=== PATIENT | female | born 1980 | race Caucasian/White ===

== ENCOUNTER 2022-08-12 08:43 | Emergency (ER) | payer BC, SELFPAY ==
[2022-08-12 08:51] VITALS: BP 155/93; PULSE 78; RESP 18; TEMP 37.1; O2SAT 96; BMI 40.8
--- NOTE | 2022-08-12 09:41 | ED_ITS ---
HPI - General Adult General Time Seen by Provider: 09:42 Date Seen: 08/12/22 Chief complaint: Abdominal Pain Stated complaint: Back pain/pelvic pain Time Seen by Provider: 08/12/22 09:42 Source: patient and RN notes reviewed Mode of arrival: ambulatory Limitations: no limitations History of Present Illness HPI narrative: Patient is a 41-year-old female coming in with lower pelvic pain and low back pain today. On Friday, 2 days ago, she noted poking type pains in both of the outer hip areas, pointing to the superior iliac crest areas bilaterally. It went into the back and abdomen area. It has morphed into some low back pain with lower pelvic pain and pressure. Seems to radiate into both sides of the low abdomen/pelvic area. No fevers or chills, no urinary symptoms, no vaginal symptoms. She is about 14 days into her cycle, states she is not having much intercourse, nothing frequent. States there is no chance for . No change in bowel habits, no nausea or vomiting. Has had an episode similar to this where she was diagnosed with a ruptured ovarian cyst. She has also had a history of kidney stones that took 7 months to diagnosed per report. Her urinalysis kept coming back normal without any red cells. There is no pain into her lower extremities, this does not seem to be a radiculopathic type back pain per her report. She has tried Tylenol. She took 1 of her 's muscle relaxants which it sounds like may have been Flexeril last night. It did not help. She had a tough time getting comfortable and sleeping due to this pain last night. Related Data Previous Rx's Medication Instructions Recorded prednisone 20 mg tablet 20 mg PO BID #10 tabs 08/12/22 tizanidine 4 mg capsule 4 mg PO TID PRN muscle spasticity 08/12/22 #20 caps Allergies Allergy/AdvReac Type Severity Reaction Status Date / Time No Known Drug Allergies Allergy Verified 08/12/22 08:54 Review of Systems Status of ROS: Reports: 10 or more systems reviewed and unremarkable except as noted in History and below PFSH PFS Social History Smoking Status: Never smoker Do you use any of these nicotine containing products: None Second hand tobacco smoke exposure: No How often do you have a drink containing alcohol: never AUDIT-C Alcohol total score: 0 Non-prescribed substance use: denies use Exam Const: Vital Signs, click to edit/add: Vital Signs - 24 hr 08/12/22 08:51 08/12/22 10:45 Temperature 98.8 F Pulse Rate [Right Pulse Oximeter] 78 67 Respiratory Rate 18 16 Blood Pressure [Ri ght Upper Arm] 155/93 H 137/89 Pulse Oximetry 96 99 Oxygen Delivery Me thod Room Air Room Air Documenting provider has reviewed patient's vital signs: yes Common normals: no apparent distress, oriented x3, no limitations, healthy appearing and alert General appearance: cooperative, comfortable and well kempt Nutritional appearance: overweight HENMT: Common normals: normocephalic, head/scalp atraumatic, hearing grossly normal bilaterally, external ears normal, external nose normal, nasal mucous membranes and turbinates normal, moist oral mucous membranes, oropharynx normal, dentition normal and gingiva normal Head and scalp: normocephalic and atraumatic Nose: external nose normal and nasal mucous membranes and turbinates normal External ear: external ears normal Eye: Common normals: PERRL, EOMs intact bilaterally, conjunctivae normal and no scleral icterus Conjunctiva: conjunctiva(e) normal Pupil: PERRL Neck & C-Spine: Common normals: full ROM, no lymphadenopathy, supple, no meningeal signs, no JVD and thyroid normal Thyroid: thyroid normal Resp: Common normals: normal respiratory effort, no retractions, no use of accessory muscles and clear to auscultation bilaterally Auscultation: clear to auscultation bilaterally Cardio: Common normals: no JVD, regular rate, regular rhythm, S1 normal heart sound, S2 normal heart sound, no gallops, no clicks, no murmurs and no rub Rate: regular rate Rhythm: regular rhythm Heart sounds: S1 normal and S2 normal GI: Common normals: Normal to inspection, nondistended, normoactive bowel sounds present, soft to palpation, non-tender, no hepatosplenomegaly, no masses and no bruits Palpation: soft and no hepatosplenomegaly Other: Is nontender to palpation but states she is feeling the pain more suprapubic, certainly no rebound or guarding, no masses palpated. : Common normals: no CVA tenderness Bladder/kidney exam: no CVA tenderness Back & Pelvis: Common normals: no CVA tenderness, thoracic and lumbar spine normal to inspection and no thoracic nor lumbar tenderness Extremity: Common normals: normal to inspection, full ROM, normal capillary refill, no joint enlargement, no clubbing, cyanosis or edema, no calf tenderness and no pedal edema Neuro: Common normals: oriented x3 Sensorium/orientation: alert Meningeal signs: no meningeal signs Psych: Appearance: well kempt Course Course Hospital Course: We will establish an IV, get appropriate blood work and attempt to get a urinalysis as well. We will start with a pelvic ultrasound. She understands that we may need to obtain CT depending on what our labs and ultrasound show. We will give her 15 mg IV Toradol to see if this helps with pain. She is in agreement to the plan. It certainly sounds like there could be possibility of ovarian pathology including ovarian cysts. It is also possible that there might be consideration for kidney stones. Reevaluation(s) Reevaluation #1: Reviewed with patient that her ultrasound of her pelvis is not showing any acute pathology. Did review the calcifications in the ovaries which was requested for a follow-up ultrasound, will provide her with a copy on discharge to give her primary care provider. Reviewed her labs are looking good. She is still feeling a little low back pain and some pain in the right lower quadrant. We will be obtaining CT abdomen pelvis noncontrast. If this is normal, then this certainly could be coming from back pain. She states that she does not need anything further for pain control at this time. Time: 11:44 Reevaluation #2: Have reviewed with patient that there is nothing on her CT to suggest intra- abdominal pathology. Her labs are without any concerning abnormality. I do wonder if this is actually probably musculoskeletal in coming from her back. 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 I am actually going to give her her today and tomorrow off to rest. We discussed management in will proceed with prednisone [id number] Tylenol and ibuprofen. I will write for tizanidine different muscle relaxant and give her a few pain pills of tramadol. A prescription for 10 tramadol tablets will be provided. Time: 13:04 Vital Signs Vital signs: Initial Vital Signs Temperature 98.8 F 08/12/22 08:51 Temperature Source Temporal Artery Scan 08/12/22 08:51 Pulse Rate 78 08/12/22 08:51 Respiratory Rate 18 08/12/22 08:51 Blood Pressure 155/93 H 08/12/22 08:51 Blood Pressure Mean 113 08/12/22 08:51 Blood Pressure Position Sitting 08/12/22 08:51 Pulse Oximetry 96 08/12/22 08:51 Oxygen Delivery Method 08/12/22 08:51 Vital Signs Temperature 98.8 F 08/12/22 08:51 Pulse Rate 78 08/12/22 08:51 Respiratory Rate 18 08/12/22 08:51 Blood Pressure 155/93 H 08/12/22 08:51 Pulse Oximetry 96 08/12/22 08:51 Oxygen Delivery Method 08/12/22 08:51 Temperature 98.8 F 08/12/22 08:51 Pulse Rate 67 08/12/22 10:45 Respiratory Rate 16 08/12/22 10:45 Blood Pressure 137/89 08/12/22 10:45 Pulse Oximetry 99 08/12/22 10:45 Oxygen Delivery Method 08/12/22 10:45 Medical Decision Making Lab Data Lab results reviewed: Yes I reviewed the patient's lab results Labs: Lab Results 08/12/22 08/12/22 08/12/22 Range/Units 10:00 10:10 10:10 WBC 7.76 (4.50-11.00) K/uL RBC 5.05 (4.00-5.20) m/uL Hgb 14.2 (12.0-16.0) gm/dL Hct 43.0 (33.0-51.0) % MCV 85 (80-100) fL MCH 28 (26-34) pg MCHC 33 (32-36) gm/dL RDW Coeff of Zak 12.2 (11.5-15.5) % Plt Count 288 (140-440) K/uL Neut % (Auto) 45.0 (42.0-72.0) % Lymph % (Auto) 46.9 H (20-44) % [place] % (Auto) 5.7 (0.0-11.0) % Eos % (Auto) 1.4 (0.0-7.0) % Baso % (Auto) 0.6 (0.0-3.0) % Neut # (Auto) 3.49 (1.7-7.0) K/uL Lymph # (Auto) 3.60 H (0.90-2.90) K/uL Gentry # (Auto) 0.40 (0.00-0.90) K/UL Eos # (Auto) 0.11 (0.00-0.50) K/uL Baso # (Auto) 0.05 (0.00-0.30) K/uL Abs Immat Gran (auto) 0.03 (0.00-0.30) K/uL Sodium 135 (135-149) mmol/L Potassium 3.8 (3.6-5.1) mmol/L Chloride 103 (96-114) mmol/L Carbon Dioxide 25 (20-32) mmol/L BUN 10 (5-24) mg/dL Creatinine 0.7 (0.5-1.5) mg/dL Estimated Creat Clear 98.01 Estimated GFR 111 ml/min Glucose 88 (60-115) mg/dL Lactate (0.5-1.9) mmol/L Calcium 8.9 (8.4-10.6) mg/dL Total Bilirubin 0.4 (0.1-1.5) mg/dL AST 26 (12-35) U/L ALT 27 (4-35) U/L Alkaline Phosphatase 91 (40-150) U/L C-Reactive Protein < 0.5 L (0.5-1.0) mg/dL Total Protein 7.5 (6.0-8.3) g/dL Albumin 4.3 (3.3-5.0) g/dL Urine Color Yellow (Yellow) Urine Appearance Slightly Cloudy A (Clear) Urine pH 6.0 (5.0-8.5) Ur Specific [place] 1.020 (1.000-1.030) Urine Protein Negative (Negative) Urine Glucose (UA) Negative (Negative) Urine Ketones Negative (Negative) Urine Blood Trace-intact A (Negative) Urine Nitrite Negative (Negative) Urine Bilirubin Negative (Negative) Urine Urobilinogen 0.2 (0.2-1.0) Ur Leukocyte Esterase 1+ A (Negative) Urine RBC 2-5 A (0-2) Urine WBC 5-10 A (0-5) Ur Squamous Epith Cells Many A (None-Few) Urine Bacteria Many A (None) Urine HCG, Qual Negative (Negative) 08/12/22 Range/Units 10:10 WBC (4.50-11.00) K/uL RBC (4.00-5.20) m/uL Hgb (12.0-16.0) gm/dL Hct (33.0-51.0) % MCV (80-100) fL MCH (26-34) pg MCHC (32-36) gm/dL RDW Coeff of Zak (11.5-15.5) % Plt Count (140-440) K/uL Neut % (Auto) (42.0-72.0) % Lymph % (Auto) (20-44) % [place] % (Auto) (0.0-11.0) % Eos % (Auto) (0.0-7.0) % Baso % (Auto) (0.0-3.0) % Neut # (Auto) (1.7-7.0) K/uL Lymph # (Auto) (0.90-2.90) K/uL [place] # (Auto) (0.00-0.90) K/UL Eos # (Auto) (0.00-0.50) K/uL Baso # (Auto) (0.00-0.30) K/uL Abs Immat Gran (auto) (0.00-0.30) K/uL Sodium (135-149) mmol/L Potassium (3.6-5.1) mmol/L Chloride (96-114) mmol/L Carbon Dioxide (20-32) mmol/L BUN (5-24) mg/dL Creatinine (0.5-1.5) mg/dL Estimated Creat Clear Estimated GFR ml/min Glucose (60-115) mg/dL Lactate 0.9 (0.5-1.9) mmol/L Calcium (8.4-10.6) mg/dL Total Bilirubin (0.1-1.5) mg/dL AST (12-35) U/L ALT (4-35) U/L Alkaline Phosphatase (40-150) U/L C-Reactive Protein (0.5-1.0) mg/dL Total Protein (6.0-8.3) g/dL Albumin (3.3-5.0) g/dL Urine Color (Yellow) Urine Appearance (Clear) Urine pH (5.0-8.5) Ur Specific [place] (1.000-1.030) Urine Protein (Negative) Urine Glucose (UA) (Negative) Urine Ketones (Negative) Urine Blood (Negative) Urine Nitrite (Negative) Urine Bilirubin (Negative) Urine Urobilinogen (0.2-1.0) Ur Leukocyte Esterase (Negative) Urine RBC (0-2) Urine WBC (0-5) Ur Squamous Epith Cells (None-Few) Urine Bacteria (None) Urine HCG, Qual (Negative) Imaging Data CT scan - abdomen: Attestation: I have reviewed the pertinent imaging results. Radiologist's impression: Patient: [facility] Facility:?[facility] Patient ID:?[id number] Site Patient ID:?[id number]. Site :?[id number] Study:?CT Abdomen/Pelvis W/O-08/12/2022 12:07:36 PM Ordering Physician:Alona Cruz Final Report: INDICATION: Abdominal pain, normal ultrasound. TECHNIQUE: CT abdomen and pelvis without contrast. Coronal and sagittal reformats were generated. COMPARISON: CT of the abdomen and pelvis from 08/17/2013. FINDINGS: Lower chest: Unremarkable. Liver: Decreased attenuation is suggestive of steatosis. Otherwise unremarkable within limitations of lack of contrast. Gallbladder and bile ducts: Unremarkable. No stones or inflammation. No biliary dilation. Spleen: Unremarkable. Pancreas: Unremarkable. Adrenal glands: Unremarkable. No nodules. Kidneys and Ureters: No stones or hydronephrosis. Lymph Nodes and Retroperitoneum: Unremarkable. Vasculature: Unremarkable. GI tract: Unremarkable. Normal in caliber. Normal appendix. Peritoneum/Abdominal Wall: Unremarkable. No mass or infiltration. No free air or free fluid. Pelvic Viscera: Unremarkable. Bladder: Unremarkable. Bones: Unremarkable for age. IMPRESSION: No CT findings to explain the cause of the patient`s symptoms, within limitations of lack of contrast. Please note that all CT scans at this facility use dose modulation, iterative reconstruction, and/or weight-based dosing when appropriate to reduce radiation dose to as low as reasonably achievable. Dictated by Amado Arizmendi MD @ 08/12/2022 12:20:18 PM (Electronic Signature) US - abdomen: Attestation: I have reviewed the pertinent imaging results. Radiologist's impression: Patient: [facility] Facility:?[facility] Patient ID:?[id number] Site Patient ID:?[id number] Site :?[id number] Study:?US Pelvis -08/12/2022 11:01:54 AM Ordering Physician:Alona Cruz Final Report: INDICATION: Pelvic pain TECHNIQUE: Ultrasound pelvis transabdominal and transvaginal for better assessment or to better visualize the endometrium. Real-time sonographic images with spectral and color Doppler imaging of the ovaries were obtained. COMPARISON: None FINDINGS: Uterus: 7.6 x 4.1 x 5.6 cm. Normal echotexture of the myometrium. No masses. Endometrium: Endometrial thickness measures 10 mm. No sign of endometrial mass or fluid. Right ovary: 2.7 x 3.7 x 2.2 centimeters. Normal blood flow with inhomogeneous echotexture and small echogenic areas, likely punctate calcification. Left ovary: 3.7 x 2.0 x 2.2 centimeters. Normal blood flow with inhomogeneous echotexture and small echogenic areas, likely calcification. Cul-de-sac: Trace free fluid. IMPRESSION: 1. Normal bilateral ovarian blood flow. Some punctate calcifications within the ovaries which are nonspecific. Considering their bilateral distribution these are more likely dystrophic although follow-up pelvic ultrasound in 6 months to assess stability is suggested. 2. Unremarkable sonographic appearance of the uterus. Dictated by Colin Gaviria MD @ 08/12/2022 11:17:05 AM (Electronic Signature) Critical Care Time Critical Care Time Critical Care Time: No Discharge Plan Discharge Clinical Impression: Pelvic pain, Acute lumbar back pain Condition: Stable Instructions: Acute Low Back Pain (ED) Additional Instructions: Given the normal ultrasound and CT findings, the normal laboratory evaluation, it is my a opinion that your pelvic pain is likely referred pain from your back. Try prednisone, Tylenol/ibuprofen per bottle directions. Can use the tramadol if needed for severe pain, no driving or operating machinery. Need to follow up in clinic with primary provider within the next week. Consider physical therapy, get referral from primary provider. Activity Level: Activity as Tolerated Prescriptions: New prednisone 20 mg tablet 20 mg PO BID Qty: 10 0RF tizanidine 4 mg capsule 4 mg PO TID PRN (Reason: muscle spasticity) Qty: 20 0RF Stand Alone Forms: MyHealth Info Instructions
--- NOTE | 2022-08-12 09:48 | CRLHL7_ITS ---
For Patients: As a result of the Century Cures Act, medical imaging exams and procedure reports are released immediately into your electronic medical record. You may view this report before your referring provider. If you have questions, please contact your health care provider. INDICATION: Pelvic pain TECHNIQUE: Ultrasound pelvis transabdominal and transvaginal for better assessment or to better visualize the endometrium. Real-time sonographic images with spectral and color Doppler imaging of the ovaries were obtained. COMPARISON: None FINDINGS: Uterus: 7.6 x 4.1 x 5.6 cm. Normal echotexture of the myometrium. No masses. Endometrium: Endometrial thickness measures 10 mm. No sign of endometrial mass or fluid. Right ovary: 2.7 x 3.7 x 2.2 centimeters. Normal blood flow with inhomogeneous echotexture and small echogenic areas, likely punctate calcification. Left ovary: 3.7 x 2.0 x 2.2 centimeters. Normal blood flow with inhomogeneous echotexture and small echogenic areas, likely calcification. Cul-de-sac: Trace free fluid. IMPRESSION: 1. Normal bilateral ovarian blood flow. Some punctate calcifications within the ovaries which are nonspecific. Considering their bilateral distribution these are more likely dystrophic although follow-up pelvic ultrasound in 6 months to assess stability is suggested. 2. Unremarkable sonographic appearance of the uterus. Dictated by Colin Gaviria MD @ 08/12/2022 11:17:05 AM (Electronically Signed)
[2022-08-12] MEDS: KETOROLAC 15 MG/ML inj IVP (10:11)
[2022-08-12 10:17] LABS: Lactate* 0.9 mmol/L (0.5-1.9)
--- NOTE | 2022-08-12 10:22 | PC.NURSE ---
pt to ultrasound
[2022-08-12 10:24] LABS: Ur HCG Qualitative* Negative (Negative)
[2022-08-12 10:25] LABS: Appearance Urine Slightly Cloudy (Clear); Bilirubin Urine Negative (Negative); Blood Urine Trace-intact (Negative); Color Urine Yellow (Yellow); Glucose Urine Negative (Negative); Ketones Urine Negative (Negative); Leukocyte Esterase Urine 1+ (Negative); Nitrite Urine Negative (Negative); Protein Urine Negative (Negative); Urobilinogen Urine 0.2 (0.2-1.0)
[2022-08-12 10:37] LABS: Albumin* 4.3 g/dL (3.3-5.0); Chloride* 103 mmol/L (96-114); Potassium* 3.8 mmol/L (3.6-5.1); Sodium* 135 mmol/L (135-149)
[2022-08-12 10:38] LABS: Bacteria Urine Many; Squamous Epithelial Cell Urine Many (None-Few)
[2022-08-12 10:39] LABS: Creatinine* 0.7 mg/dL (0.5-1.5); Est. Creatinine Clearance* 98.01; Estimated Glomerular Filt Rate 111 ml/min
[2022-08-12 10:40] LABS: Alanine Aminotransferase* 27 U/L (4-35); Alkaline Phosphatase* 91 U/L (40-150); Aspartate Amino Transferase* 26 U/L (12-35); Bilirubin Total* 0.4 mg/dL (0.1-1.5); Blood Urea Nitrogen* 10 mg/dL (5-24); Carbon Dioxide* 25 mmol/L (20-32); Glucose* 88 mg/dL (60-115); Total Protein* 7.5 g/dL (6.0-8.3)
[2022-08-12 10:41] LABS: Calcium* 8.9 mg/dL (8.4-10.6)
[2022-08-12 10:45] VITALS: BP 137/89; PULSE 67; RESP 16; O2SAT 99
[2022-08-12 10:45] LABS: Basophils Absolute Auto 0.05 K/uL (0.00-0.30); Basophils Percent Auto 0.6 % (0.0-3.0); Eosinophils Absolute Auto 0.11 K/uL (0.00-0.50); Eosinophils Percent Auto 1.4 % (0.0-7.0); Hemoglobin* 14.2 gm/dL (12.0-16.0); Immature Granulocytes Abs Auto 0.03 K/uL (0.00-0.30); Lymphocytes Percent Auto 46.9 % (20-44); Mean Corpuscular HGB Conc 33 gm/dL (32-36); Mean Corpuscular Hemoglobin 28 pg (26-34); Mean Corpuscular Volume 85 fL (80-100); Monocytes Percent Auto 5.7 % (0.0-11.0); Neutrophils Absolute Auto 3.49 K/uL (1.7-7.0); Platelet Count* 288 K/uL (140-440); RDW Coefficient of Variation % 12.2 % (11.5-15.5); Red Blood Count 5.05 m/uL (4.00-5.20); White Blood Count* 7.76 K/uL (4.50-11.00)
[2022-08-12 10:48] LABS: C Reactive Protein* < 0.5 mg/dL (0.5-1.0)
[2022-08-12 11:20] LABS: Slide Review Reflex No
--- NOTE | 2022-08-12 11:33 | CRLHL7_ITS ---
For Patients: As a result of the Century Cures Act, medical imaging exams and procedure reports are released immediately into your electronic medical record. You may view this report before your referring provider. If you have questions, please contact your health care provider. INDICATION: Abdominal pain, normal ultrasound. TECHNIQUE: CT abdomen and pelvis without contrast. Coronal and sagittal reformats were generated. COMPARISON: CT of the abdomen and pelvis from 08/17/2013. FINDINGS: Lower chest: Unremarkable. Liver: Decreased attenuation is suggestive of steatosis. Otherwise unremarkable within limitations of lack of contrast. Gallbladder and bile ducts: Unremarkable. No stones or inflammation. No biliary dilation. Spleen: Unremarkable. Pancreas: Unremarkable. Adrenal glands: Unremarkable. No nodules. Kidneys and Ureters: No stones or hydronephrosis. Lymph Nodes and Retroperitoneum: Unremarkable. Vasculature: Unremarkable. GI tract: Unremarkable. Normal in caliber. Normal appendix. Peritoneum/Abdominal Wall: Unremarkable. No mass or infiltration. No free air or free fluid. Pelvic Viscera: Unremarkable. Bladder: Unremarkable. Bones: Unremarkable for age. IMPRESSION: No CT findings to explain the cause of the patient`s symptoms, within limitations of lack of contrast. Please note that all CT scans at this facility use dose modulation, iterative reconstruction, and/or weight-based dosing when appropriate to reduce radiation dose to as low as reasonably achievable. Dictated by Amado Arizmendi MD @ 08/12/2022 12:20:18 PM (Electronically Signed)
[2022-08-12 13:36] VITALS: BP 138/80; PULSE 80; RESP 16; TEMP 36.9; O2SAT 98
== END 2022-08-12 13:30 | disposition home or self-care (01) ==
PROVIDERS: Emergency Provider Family Medicine
DX: R10.2 Pelvic and perineal pain (principal); M54.50 Low back pain, unspecified
CPT/HCPCS: 36415; 74176; 76830; 76856; 80053; 81001; 81025; 83605; 85025; 86140; 87086; 93976; 96374; 99284; J1885

== ENCOUNTER 2025-09-04 03:52 | Emergency (ER) | payer BC, SELFPAY ==
--- OUTSIDE RECORDS SUMMARY | 2025-09-04 03:53 | XMS_ITS | Clinical Summary ---
Author Organization [email or web address] Address [address] [place] [id number] Care Team Providers Care Solar Energy Systems Designer Name Role Phone Nikki Cristina Primary Care Provider [phone]- [phone] Allergies No known active allergies Medications amLODIPine (NORVASC) 5 mg tabletIndications:H TN (hypertension) Take 1 Tablet (5 mg) by mouth once daily. 90 Tablet 3 5 Active atorvastatin (LIPITOR) 20 mg tabletIndications:M ixed hyperlipidemia Take 1 Tablet (20 mg) by mouth at bedtime. 90 Tablet 3 5 Active Active Problems Problem Noted Date Diagnosed Date HTN (hypertension) 02/03/2025 Vitamin D deficiency 02/03/2025 Menorrhagia with regular cycle 02/03/2025 Mixed hyperlipidemia 08/01/2023 Renal calculus, left 08/27/2013 Overview (08/27/2013): 08/17/13 CT showed a 8.2 x 9.2 stone Plantar fasciitis 05/25/2012 Obesity, unspecified 05/25/2012 Iron deficiency anemia, unspecified 12/13/2011 Resolved Problems Problem Noted Date Diagnosed Date Resolved Date Contraception 10/23/2011 02/03/2025 Overview (09/24/2013): [facility] Supervision of other normal 02/28/2009 01/06/2010 Pap smear for cervical cancer screening 03/01/2005 02/03/2025 Overview (08/11/2023): 01/2005 LSIL 03/2005 Gap: CAMILO 1 12/2005 NIL 10/2006 ASCUS / HPV + 10/2006 Gap: Negative 01/2008 ASCUS / HPV + 01/2009 LSIL 05/2009 Gap: Negative 10/2009 NIL 10/2011 LSIL 12/2011 Gap: CAMILO 1 10/2012 NIL 03/2014 NIL 03/2018 NIL/HPV negative 07/2023 NIL/HPV Negative Plan: Pap and HPV due 07/2028 Encounters Date Type Department Care Team Description 07/08/2025 2:30 PM CDT [facility] [address] [place] [address] Nikki Cristina PA Derm Problem (Has some skin tags she wants removed) 07/08/2025 Travel 07/07/2025 Telephone [facility] [address] [place] [address] Anabel Rivero DO FORMS 07/05/2025 11:30 AM CDT Office Visit [facility] [address] [place] [address] Anabel Rivero DO Post-op (06/06/25 robotic assisted total laparoscopic hysterectomy) 07/05/2025 Travel 06/06/2025 7:35 AM CDT Anesthesia Event [facility] [address] [place] [address] Kierra Angel CRNA 06/06/2025 7:30 AM CDT - 06/06/2025 10:40 AM CDT Surgery [facility] [address] [place] [address] Anabel Rivero DO robotic assisted total laparoscopic hysterectomy 06/06/2025 6:30 AM CDT - 06/06/2025 3:30 PM CDT Hospital Encounter [facility] [address] [place] [address] Anabel Rivero DO Abnormal uterine bleeding (AUB) (Primary Dx); S/P hysterectomy Discharge Disposition: Home Self Care 06/06/2025 Travel from Last 3 Months Immunizations Immunization Administration Dates Next Due COVID-19 vaccine (Moderna 100mcg/0.5mL) PF, MDV 03/19/2021,02/19/2021 Influenza, IIV3 (Age >=3 years) 09/12/2009 Influenza, IIV4 (=>6mos) MDV 09/07/2020 MMR 08/22/1992 Td (Age >=7 Years) 12/01/1994 Td, Preservative Free (age >= 7 Years) 6 Tdap 12/30/2022,10/23/2011 Family History Medical History Relation Name Comments Unknown Father Hyperlipidemia Mother Hypertension Mother Cancer-breast Other maternal great grandmother Cancer-colon No Family History Relation Name Status Comments Father Alive Mother Alive Other Social History Tobacco Use Types Packs/Day Years Used Date Smoking Tobacco: Never Smokeless Tobacco: Never Tobacco Cessation:Counseling Given: Yes Comments: smokes outside Alcohol Use Standard Drinks/Week Comments No 0 (1 standard drink = 0.6 oz pur e alcohol) PHQ-2 Answer Date Recorded PHQ-2 TOTAL SCORE 1 02/01/2025 Social Connections Answer Date Recorded Do you often feel lonely or isolated from those around you? 0 02/01/2025 Financial Resource Strain Answer Date R ecorded Difficulty of Paying Living Expenses 3 02/01/2025 Difficulty of Paying Living Expenses Not on file 02/01/2025 Food Insecurity Answer Date Recorded Do you worry your food will run out before you are able to buy more? 1 02/01/2025 Transportation Needs Answer Date Record ed Does lack of transportation keep you from medica l appointments? 1 02/01/2025 Does lack of transportation keep you from work, meetings or getting things that you need? 1 02/01/2025 Housing Stability Answer Date Recorded What is your housing situation today? 1 02/01/2025 Utilities Answer Date Recorded Do you have trouble paying f or utilities (for example, heat, electricity, water, phone)? 1 02/01/2025 Comments No Sex and Gender Information Value Date Recorded Sex Assigned at Not on file Legal Sex Female 5:27 AM ENTERPRISE SYSTEMS ARCHITECT Gender Identity Not on file Sexual Orientation Not on file Obstetrics History Para Term AB IAB SAB Ectopic Multiple Livin g Live Births 5 5 0 5 Date Outcome GA Total Labor Labor/2nd/3rd Weight Sex Type Anes PTL Angelic A1 A5 Name Clin 8 Para 8h 00m/ 3.57 kg (7 lb 14 oz) F Vag 9 Para 9h 00m/ 3.57 kg (7 lb 14 oz) M Vag 2 Para 10h 00m/ 3.97 kg (8 lb 12 oz) M Vag Comments:bleeding seco ndary to uterine atony 4 Para 3.6 kg (7 lb 15 oz) F Vag Comments:bleeding seco ndary to uterine atony 9 Para 8h 00m/ 4.31 kg (9 lb 8 oz) F Vag Last Filed Vital Signs Vital Sign Reading Time Taken Comments Blood Pressure 136/87 07/08/2025 2:22 PM CDT Pulse 75 07/08/2025 2:22 PM CDT Temperature 36.4 C (97.6 F) 06/06/2025 2:50 PM CDT Respiratory Rate 16 06/06/2025 2:50 PM CDT Oxygen Saturation 98% 07/08/2025 2:22 PM CDT Inhaled Oxygen Concentration - - Weight 124.3 kg (274 lb) 07/08/2025 2:22 PM CDT Height 167 cm (5' 5.75) 06/06/2025 6:55 AM CDT Body Mass Index 44.56 06/06/2025 6:55 AM CDT Plan of Treatment Health Maintenance Due Date Last Done Comments Hepatitis B series for 19+ (1 of 3 - 19+ 3-dose series) 1998 Mammogram for age 45-75 2024 08/08/2023 COVID-19 vaccine series (2024- season) 2025 03/19/2021, 02/19/2021 Influenza Vaccine (#1) 2025 09/07/2020, 2008 Depression screening for age 12+ 02/03/2026 02/03/2025, 02/01/2025, 07/22/2023, Additional history exists BMI (ht and wt on same day) for age 18+ 05/30/2026 05/30/2025, 03/17/2025, 07/22/2023, Additional history exists Fecal testing sDNA-FIT (Cologuard) for age 45-75 06/20/2028 06/20/2025 Pap test for age 21-65 07/22/2028 , 07/22/2023, 04/08/2018, Additional history exists Lipids for age 45-75 02/01/2030 02/01/2025, 07/22/2023, 04/08/2018, Additional history exists Tetanus booster 12/30/2032 12/30/2022, 10/02, 12/24/2005, Additional history exists RSV vaccine for adults or (1 - 1-dose 75+ series) 2054 HIV for age 15-65 Completed 02/13/2009 Hepatitis C screening for age 18-79 Completed 07/22/2023 Pneumococcal series for age 6-49 Aged Out No longer eligible based on patient's age to complete this topic Procedures Procedure Name Priority Date/Time Associated Diagnosis Comments SDNA-FIT EXTERNAL (COLOGUARD) Routine 06/20/2025 7:46 AM CDT Screening for malignant neoplasm of colon PERIPHERAL BLOCK Routine 06/06/2025 1:22 PM CDT PATH TISSUE EXAM Today 06/06/2025 10:01 AM CDT ENDOTRACHEAL TUBE Routine 06/06/2025 8:0 3 AM CDT ENDOTRACHEAL TUBE Routine 06/06/2025 8:0 3 AM CDT GLUCOSE METER Routine 06/06/2025 7:21 AM CDT ROBOTIC ASSISTED SALPINGECTOMY XI 06/06/2025 7:05 AM CDT Abnormal uterine bleeding (AUB) Case Notes rep aware -6-6 ROBOTIC ASSISTED LAPAROSCOPIC TOTAL HYSTERECTOMY 06/06/2025 7:05 AM CDT Abnormal uterine bleeding (AUB) Case Notes rep aware -6-6 TYPE & SCREEN Preop 06/06/2025 6:41 AM CDT URINE Preop 06/06/2025 6:40 AM CDT BEDSIDE US STUDY ARCHIVE Preop 06/06/2025 6:31 AM CDT LIPID PANEL W REFLEX MEASURED LDL Routine 02/01/2025 4:12 PM ENTERPRISE SYSTEMS ARCHITECT Mixed hyperlipidemia XR MAMMO BILAT SCREENING Routine 08/08/2023 3:36 PM CDT Visit for screening mammogram CURRICULUM DEVELOPMENT SPECIALIST THIN PREP PAP SCREEN IMAGED Routine 07/22/2023 4:29 PM CDT Screening for malignant neoplasm of cervix LC HCV ANTIBODY RFX TO QUANT PCR Routine 07/22/2023 4:27 PM CDT Need for hepatitis C screening test ANTI HIV 1/2 Routine 02/13/2009 3:03 PM CDT Supervision of Other Normal (HC) from Last 3 Months or Most Recently Relevant to Health Maintenance Results * SDNA-FIT EXTERNAL (COLOGUARD) (06/20/2025 7:46 AM CDT) NONINV COLON CA DNA+OCC BLD SCRN STL-IMP Negative Negative 07/13/2025 7:33 PM CDT [facility] (CLIA #:[id number]) Comment: The Cologuard (TM) test was performed on this specimen. NEGATIVE TEST RESULT. A negative Cologuard result indicates a low likelihood that a colorectal cancer (CRC) or advanced adenoma (adenomatous polyps with more advanced pre-malignant features) is present. The chance that a person with a negative Cologuard test has a colorectal cancer is less than 1 in 1500 (negative predictive value >99.9%) or has an advanced adenoma is less than 5.3% (negative predictive value 94.7%). These data are based on a prospective cross-sectional study of 10,000 individuals at average risk for colorectal cancer who were screened with both Cologuard and colonoscopy. (Len Landa et al, N Engl J Med 2014;370(14):1286- 1297) The normal value (reference range) for this assay is negative. COLOGUARD RE-SCREENING RECOMMENDATION: Periodic colorectal cancer screening is an important part of preventive healthcare for asymptomatic individuals at average risk for colorectal cancer. Following a negative Cologuard result, the [place] [employer] Society and U.S. Multi-Society Task Force screening guidelines recommend a Cologuard re-screening interval of 3 years. References: [place] [employer] Guideline for Colorectal Cancer Screening: https://www.cancer.org/cancer/jyssd-vygcti-bhvepf/mbyvbedkb-daqdcizya-rrbctjl/ac s-rec ommendations.html.; Peter DK, Swati CORONADO, Jade AggarwalK, Colorectal Cancer Screening: Recommendations for Physicians and Patients from the U.S. Multi-Society Task Force on Colorectal Cancer Screening , Am J Gastroenterology 2017; 112:6129-4042. TEST DESCRIPTION: Composite algorithmic analysis of stool DNA-biomarkers with hemoglobin immunoassay. Quantitative values of individual biomarkers are not reportable and are not associated with individual biomarker result reference ranges. Cologuard is intended for colorectal cancer screening of adults of either sex, 45 years or older, who are at average-risk for colorectal cancer (CRC). Cologuard has been approved for use by the U.S. FDA. The performance of Cologuard was established in a cross sectional study of average-risk adults aged 50-84. Cologuard performance in patients ages 45 to 49 years was estimated by sub-group analysis of near-age groups. Colonoscopies performed for a positive result may find as the most clinically significant lesion: colorectal cancer [4.0%], advanced adenoma (including sessile serrated polyps greater than or equal to 1cm diameter) [20%] or non- advanced adenoma [31%]; or no colorectal neoplasia [45%]. These estimates are derived from a prospective cross-sectional screening study of 10,000 individuals at average risk for colorectal cancer who were screened with both Cologuard and colonoscopy. (Len Vidal al, N Engl J Med 2014;370(14):1115-7135.) Cologuard may produce a false negative or false positive result (no colorectal cancer or precancerous polyp present at colonoscopy follow up). A negative Cologuard test result does not guarantee the absence of CRC or advanced adenoma (pre-cancer). The current Cologuard screening interval is every 3 years. ([place] [employer] Society and U.S. Multi-Society Task Force). Cologuard performance data in a 10,000 patient pivotal study using colonoscopy as the reference method can be accessed at the following location: www.Marketbright/results. Additional description of the Cologuard test process, warnings and precautions can be found at www.MotorExchangerd.com. Stool specimen (specimen) (Rectum) 06/20/2025 7:46 AM CDT 06/22/2025 9:09 AM CDT us Nikki MCFARLANE URINE Final Resu lt [facility] (CLIA #:[id number]) [address] [place] [address], * Peripheral Block (06/06/2025 1:22 PM CDT) Narrative Kierra Angel CRNA - 06/06/2025 1:22 PM CDT Kierra Angel CRNA 06/28/2025 7:54 AM Peripheral Block Patient location during procedure: OR Start time: 06/06/2025 11:00 AM End time: 06/06/2025 11:30 AM Reason for block: at surgeon's request, post-op pain and procedure for pain Requesting provider: Anabel Rivero DO PreProcedure Checklist Completed: patient identified, site marked, risks and benefits discussed, surgical consent, timeout performed and hand hygiene performed. Peripheral Block Patient position: supine Prep: chloraprep Patient monitoring: continuous pulse oximetry, blood pressure and ECG Neuro Status: mild sedation Block type: TAP, regional analgesia techniques Laterality: bilateral Injection technique: single injection Needle Needle type: Stimuplex Needle Details: echogenic Needle gauge: 20 G Needle length: 4 in Unilateral needle localization (ultrasound): live ultrasound guidance, needle and nerve visualized, no pathologic findings, local anesthetic visualized surrounding nerve and nerve appears normal. Unilateral needle Localization (plane blocks): needle and expected nerve location visualized, local anesthetic visualized in anatomic plane and anatomic plane and expected location of nerve appears normal Left needle localization (ultrasound): live ultrasound guidance, needle and nerve visualized, no pathologic findings, local anesthetic visualized surrounding nerve, nerve appears normal and permanent images obtained Right needle localization (ultrasound): live ultrasound guidance, needle and nerve visualized, no pathologic findings, local anesthetic visualized surrounding nerve, nerve appears normal and permanent images obtained Left needle Localization (plane blocks): needle and expected nerve localization visualized, local anesthetic visualized in anatomic plane and anatomic plane and expected location of nerve appears normal Right needle Localization (plane blocks): needle and expected nerve localization visualized, local anesthetic visualized in anatomic plane and anatomic plane and expected location of nerve appears normal Needle Localization (other): anatomical landmarks. Catheter Catheter used:no Events: no complications. us Kierra Angel DRAFTER ELECTRICAL ANESTHESIA PX NOTE ORDER ALETHEA Edited Result - Final * PATH TISSUE EXAM (06/06/2025 10:01 AM CDT) Case Report Pathology Report Case: [id number] Authorizing Provider: Anabel Rivero Collected: 06/06/2025 1001 DO Filipe Ordering Location: [facility] Received: 06/06/[address] [place] [address] Pathologist: Nikki Perdomo MD Specimen: Uterus,cervix,clementina ateral fallopian tubes (no ovaries), Pin in right fallopian tube 06/08/2025 2:31 PM CDT [facility] Final Diagnosis A) UTERUS WITH CERVIX AND FALLOPIAN TUBES, TOTAL HYSTERECTOMY WITH BILATERAL SALPINGECTOMY: 1. Cervix: Benign endocervical polyp and nabothian cysts 2. Endometrium: a. Benign endometrial polyp b. Background proliferative endometrium 3. Myometrium: Leiomyoma 4. Uterine serosa: Adhesions 5. Right fallopian tube: No significant histologic abnormality 6. Left fallopian tube: No significant histologic abnormality 7. Uterine weight: 134 grams 8. Negative for malignancy 06/08/2025 2:31 PM CDT [facility] at 1431 CDT Clinical Information Abnormal uterine bleeding 06/08/2025 2:31 PM CDT [facility] Gross Description A) Received in formalin, labeled with the patient's name and uterus, cervix, bilateral fallopian tubes (no ovaries) pin in right fallopian tube, 134 g (uterus and cervix weight only), 9.5 x 6.3 x 4.5 cm uterus with attached cervix and attached bilateral fallopian tubes, oriented with a safety pin inserted in the right segment. The uterine serosa is kumari, focally disrupted with patchy thin hemorrhagic adhesions constituting 5% of the surface area. The attached cervix is 3.5 cm in length and 3.3 cm in diameter with kumari, focally wrinkled glistening ectocervical mucosa and a 1 cm os. The paracervical soft tissue is inked blue on the anterior and black on the posterior. The specimen is opened to reveal a well-demarcated squamocolumnar junction and a 1.3 x 0.5 x 0.4 cm red-pink sessile polyp in the endocervical mucosa at 9:00. The polyp is 3 cm from the closest posterior ectocervical margin. No invasion is seen on the cut surfaces. The triangular uterine cavity measures 3.7 x 2.7 cm and has a kumari glistening moderately hemorrhagic lining between 0.1 and 0.3 cm thick with a 1.6 x 0.8 x 0.3 cm polyp attached to the right anterior corpus wall. No invasion is seen on the cut surfaces. No other endometrial lesions are seen. The average myometrial thickness is 2 cm. There is a 0.3 cm diameter white well-demarcated intramural nodule. Gross hemorrhage and necrosis are absent. The right and left fallopian tubes are kumari, mildly hemorrhagic and fimbriated averaging 5 cm in length and 0.6 cm in diameter. The serosal surfaces are smooth and focally disrupted. Both segments exhibit attached fatty soft tissue averaging 2.5 x 1 x 1 cm. The serosal surfaces also exhibit several 0.1-0.3 cm diameter subserosal cysts with thin clear fluid contents. Sectioning reveals stellate lumina with glistening kumari mucosal linings. No lesion is identified. Certified Paralegal sections: 1. Anterior cervix 2. Posterior cervix 3. Endocervical polyp 4-5. Entire anterior endometrial polyp with serosa; green ink on bisected edges 6-7. Anterior endomyometrium with serosa; green ink on bisected edges 8-9. Posterior endomyometrium with serosa and an intramural nodule; green ink on bisected edges 10. Serosal adhesions 11-12. Right fallopian tube with entire fimbria 13-14. Left fallopian tube with entire fimbria Placed in formalin at 10:03 AM on 06/06/2025 DPL 06/07/2025 06/08/2025 2:31 PM CDT [facility] Microscopic Description The final diagnosis is based on microscopic examination of appropriate sections of all specimens. 06/08/2025 2:31 PM CDT [facility] Additional Information Interpreted at [facility] - [address] [facility] [address], [place] [address] 06/08/2025 2:31 PM CDT [facility] Tissue (Uterus,cervix,bi lateral fallopian tubes (no ovaries)) 06/06/2025 10:01 AM CDT 06/06/2025 4:34 PM CDT Anabel Rivero DO PATHOLOGY/CYTO LOGY Final Result [facility] [address] [place] [address], [place] * HCHG TUBE PR1, HCHG STYLET PR1 (06/06/2025 8:03 AM CDT) Narrative Kierra Angel CRNA - 06/06/2025 8:03 AM CDT Kierra Angel CRNA 06/06/2025 8:04 AM Procedure: ETT Patient location during procedure: OR ETT Properties Mask Ventilation: oral airway Type: straight Location: oral Cuffed: yes Tube Size: 7.0 mm Stylet: yes Laryngoscope Blade: Glidescope Blade Size: 3 Cormack-Lehane Grade View: 1 Insertion Attempts: 1 Placement Verification: auscultation, end tidal CO2 and symmetrical chest wall movement Assessment: pharynx clear, atraumatic and dentition unchanged Secured at: 21 Measured From: teeth Difficulty: 0 (not difficult) Kierra Angel CRNA ANESTHESIA PX NOTE ORDER ALETHEA Final Result * (ABNORMAL) GLUCOSE METER (06/06/2025 7:21 AM CDT) GLUCOSE METER 102(H) 65 - 100 mg/dL 06/06/2025 10:14 AM CDT [facility] Blood BLOOD SPECIMEN / Unknown 06/06/2025 7:21 AM CDT 06/06/2025 10:14 AM CDT us Anabel Rorya Lucas-Stopantonia DO CHEMISTRY Final Result [facility] [address] [place] [address] * Type & Screen (06/06/2025 6:41 AM CDT) Pathologist [facility] ABORH O Rh Positive 06/06/2025 7:47 AM CDT [facility] BLOOD BANK ANTIBODY SCREEN Negative Negative 06/06/2025 7:47 AM CDT [facility] BLOOD BANK SPECIMEN EXPIRATION DATE/TIME 06/09/25 23:59 06/06/2025 7:47 AM CDT [facility] BLOOD BANK Blood BLOOD SPECIMEN / Unknown Venipuncture / Unknown 06/06/2025 6:41 AM CDT 06/06/2025 6:46 AM CDT us Anabel LucasMediaPhyStopantonia DO BLOOD BANK Final Result [facility] BLOOD BANK [address] [place] [address] * Urine (06/06/2025 6:40 AM CDT) ,URIN E Negative Negative 06/06/2025 6:55 AM CDT [facility] Urine URINE SPECIMEN / Unknown Non-Blood / Unknown 06/06/2025 6:40 AM CDT 06/06/2025 6:45 AM CDT us Anabel Tarlyndsaya Lucas-Stophel DO URINE Final Result [facility] [address] [place] [address] * (ABNORMAL) LIPID PANEL W REFLEX MEASURED LDL (02/01/2025 4:12 PM ENTERPRISE SYSTEMS ARCHITECT) CHOLESTEROL, TOTAL 275(H) <200 mg/dL [facility] HDL CHOLESTEROL 52 > OR = 50 mg/dL [facility] TRIGLYCERIDES 153(H) <150 mg/dL [facility] LDL-CHOLESTEROL 191(H) mg/dL (calc) [facility] Comment: LDL-C levels > or = 190 mg/dL may indicate familial hypercholesterolemia (FH). Clinical assessment and measurement of blood lipid levels should be considered for all first degree relatives of patients with an FH diagnosis. LDL Cholesterol (LDL-C) levels > or = 300 mg/dL may indicate homozygous familial hypercholesterolemia (HoFH). Untreated, these extremely high LDL-C levels can result in premature CV events and mortality. Patients should be identified early and provided appropriate interventions to reduce the cumulative LDL-C burden from . For questions about testing for familial hypercholesterolemia, please call [facility] at [phone].[facility].INFO. Sally T, et al. J National Lipid Association Recommendations for Patient-Centered Management of Dyslipidemia: Part 1 Journal of Clinical Lipidology 2015;9(2), 129-169. Lexa Boo. et al. (2014). Homozygous familial hypercholesterolaemia: new insights and guidance for clinicians to improve detection and clinical management. Heart Journal, 35(32), 3924-8508. Reference range: <100 Desirable range <100 mg/dL for primary prevention; <70 mg/dL for patients with CHD or diabetic patients with > or = 2 CHD risk factors. LDL-C is now calculated using the Avery-Pablo calculation, which is a validated novel method providing better accuracy than the Friedewald equation in the estimation of LDL-C. Avery GARZA et al. YAHAIRA. 2013;310(19): 9268-0617 (http://education.MobiVita/faq/LPT071) CHOL/HDLC RATIO 5.3(H) <5.0 (calc) [facility] NON HDL CHOLESTEROL 223(H) <130 mg/dL (calc) [facility] Comment: Non-HDL level > or = 220 is very high and may indicate genetic familial hypercholesterolemia (FH). Clinical assessment and measurement of blood lipid levels should be considered for all first-degree relatives of patients with an FH diagnosis. For patients with diabetes plus 1 major ASCVD risk factor, treating to a non-HDL-C goal of <100 mg/dL (LDL-C of <70 mg/dL) is considered a therapeutic option. Blood BLOOD SPECIMEN / Unknown 02/01/2025 4:12 PM ENTERPRISE SYSTEMS ARCHITECT 02/01/2025 4:13 PM ENTERPRISE SYSTEMS ARCHITECT us Nikki MCFARLANE CHEMISTRY Final Resu lt [facility] [address] [place] [address], [facility] [address] [place] [address] * XR MAMMO BILAT SCREENING (08/08/2023 3:36 PM CDT) Anatomical Region Laterality Modality BREASTS, Breast Left, Breast Right Bilateral Mammography Impressions 08/11/2023 2:39 PM CDT There is no radiographic evidence for malignancy. Recommend annual mammograms. MAMMOGRAM ASSESSMENT: ACR 1 Negative PATIENTS: You will also receive a letter with your examination results in an easy to read format. If you have questions about your results, please contact your referring provider. Narrative 08/11/2023 2:39 PM CDT For Patients: As a result of the 21st Century Cures Act, medical imaging exams and procedure reports are released immediately into your electronic medical record. You may view this report before your referring provider. If you have questions, please contact your health care provider. XR MAMMO BILAT SCREENING [[id number]] CLINICAL HISTORY: This is an asymptomatic 42 y.o. patient. INDICATION FOR EXAM: Mammogram Screening. TECHNIQUE: CC & MLO views were obtained. This study was evaluated with the assistance of Computer-Aided Detection. COMPARISON FILM: This is a baseline study. FINDINGS: The breasts have scattered areas of fibroglandular density. There are no dominant masses, suspicious micro calcifications or areas of architectural distortion. us Nikki MCFARLANE MAMMO Final Resu lt * CURRICULUM DEVELOPMENT SPECIALIST THIN PREP PAP SCREEN IMAGED (07/22/2023 4:29 PM CDT) Case Report Gynecologic Cytology Report Case: [id number] Authorizing Provider: Nikki Cristina PA Collected: 07/22/2023 1629 Ordering Location: [facility] Received: 07/22/2023 1629 Clinic First Screen: Antonella Iqbal Specimen: CURRICULUM DEVELOPMENT SPECIALIST ThinPrep Vial Screening, Cervical 07/29/2023 1:30 PM CDT [facility] INTERPRETATION/ RESULT NEGATIVE FOR INTRAEPITHELIAL LESION OR MALIGNANCY (NIL) (none) 07/29/2023 1:30 PM CDT [facility] [employer] ENTRAL LABORATORY at 1330 CDT SPECIMEN ADEQUACY Satisfactory for evaluation Endocervical component present 07/29/2023 1:30 PM CDT [facility] HPV REQUEST HPV and PAP 07/29/2023 1:30 PM CDT [facility] Date of LMP 07/04/23 07/29/2023 1:30 PM CDT [facility] Last Pap Date 04/08/18 07/29/2023 1:30 PM CDT [facility] [employer] ENTRAL LABORATORY Last Pap Result NIL 1:30 PM CDT [facility] Abnormal Pap or Gap Bx in last 5 years No 07/29/2023 1:30 PM CDT [facility] Menstrual Status Regular Periods 07/29/2023 1:30 PM CDT [facility] Gap Bx Done Today No 07/29/2023 1:30 PM CDT [facility] ENTRAL LABORATORY Additional Information None given 07/29/2023 1:30 PM CDT [facility] ENTRAL LABORATORY Comment: Cytology is screened at [facility] snapp.me [facility] - [address] [address] and [facility] Laboratory - [address] [place] [address], [place] [address] and [facility] - [address] [place] [address] [facility] - [address], [place] [address] Automated Review Successful 07/29/2023 1:30 PM CDT [facility] ENTRMI LABORATORY Comment:Specimen processed s uccessfully by automated dynamic balancer set up worker device, [employer], [employer] ANCILLARY TESTING CURRICULUM DEVELOPMENT SPECIALIST HPV Ordered, Please see separate report 07/29/2023 1:30 PM CDT [facility] Note The pap test is a screening technique, not a diagnostic procedure. It is used primarily to screen for squamous cancers and precursor lesions. Published studies have shown that it is subject to both false negative and false positive results. The pap test should not be used as the sole means to diagnose or exclude pre-malignant and malignant lesions. 07/29/2023 1:30 PM CDT [facility] Other (Cervical) Non-Blood / Unknown 07/22/2023 4:29 PM CDT 07/22/2023 4:29 PM CDT us Nikki MCFARLANE PATHOLOGY/CYTOLOGY Final R esult [facility] [address] [place] [address], [place] * LC HCV ANTIBODY RFX TO QUANT PCR (07/22/2023 4:27 PM CDT) HCV Ab Non Reactive Non Reactive 07/25/2023 1:09 PM CDT [facility] Blood BLOOD SPECIMEN / Unknown Venipuncture / Unknown 07/22/2023 4:27 PM CDT 07/22/2023 4:28 PM CDT Narrative [facility] - 07/25/2023 1:09 PM CDT Performed at: [address] [place], [place] [address], [place] [id number] Backup Administrative Coordinator: Umesh Interiano MD, Phone: [phone] us Nikki MCFARLANE LABORATORY Final Resu lt [facility] [address] [place], [place] [id number], * HIV (02/13/2009 3:03 PM CDT) ANTI HIV 1/2 Non-reacti ve [facility] Blood specimen (specimen) BLOOD SPECIMEN / Unknown 02/13/2009 3:03 PM CDT 02/13/2009 2:56 PM CDT us Loretta Willson NP SEND OUTS Final Result [facility] [place]NAL ZIP [phone] [address] from Last 3 Months or Most Recently Relevant to Health Maintenance Insurance [facility] [employer] MEDICA CHOICE Advance Directives * Full Code (Latest Code Status on File) Date Activated Date Inactivated Comments 06/06/2025 6:31 AM 06/06/2025 7:23 PM Question Answer Comments Code Status Discussion: Unable to Assess Preferences, Provider to review later Care Teams [employer] Systems Designer Relationship Specialty Start Date End Date Nikki Cristina PA [address] [place] [address] PCP - General Physician Terminologist 05/30/25
[2025-09-04 04:00] VITALS: BP 131/83; PULSE 78; RESP 16; TEMP 36.6; O2SAT 100; BMI 43.3
[2025-09-04] MEDS: ONDANSETRON ODT 4 MG TAB PO (04:15)
--- NOTE | 2025-09-04 04:18 | ED.GENADULT ---
HPI - General Adult General Time Seen by Provider: 04:18 Date Seen: 09/04/25 Chief complaint: Nausea/Vomiting Stated complaint: etoh Time Seen by Provider: 09/04/25 04:18 Source: patient and family (daughter, spouse) Mode of arrival: ambulatory History of Present Illness HPI narrative: Linh is a 45-year-old female who presents the emergency department for evaluation of nausea, vomiting. Patient presents tonight with her daughter, , reports that there are to get together today and patient drinks too much alcohol. Daughter reports that around 8:00 p.m. she had dinner, then had a few sips of alcohol, later she drink a 1/2 bottle of pink vodka. States that she typically does not drink often except on special occasions. Reports that son we started feeling unwell, with highly emotional, and had multiple episodes a nausea, vomiting. Patient denies any trauma or injury. Denies any fever, chills, chest pain, shortness of breath, cough or cold-like symptoms. Denies any abdominal pain, denies any other substance use, no other complaints. Related Data Home Medications ?Medication ?Instructions ?Recorded ?Confirmed dextromethorphan HBr 5 mg/5 mL 10 mg PO Q6H PRN 12/30/23 12/30/23 oral syrup (Vicks DayQuil Cough) ibuprofen 200 mg tablet (Advil) 200 mg PO Q6H PRN 12/30/23 12/30/23 amlodipine 5 mg tablet 5 mg PO DAILY 09/04/25 09/04/25 atorvastatin 20 mg tablet 20 mg PO DAILY 09/04/25 09/04/25 Allergies Allergy/AdvReac Type Severity Reaction Status Date / Time No Known Drug Allergies Allergy Verified 09/04/25 04:07 Review of Systems Narrative: Past medical history, past surgical history, medications, allergies, family history, and social history were reviewed with the patient. No additional pertinent items. A medically appropriate review of systems was performed with pertinent positives and negatives noted in HPI, all other systems negative. [facility] Medical History (Updated 09/04/25 @ 04:57 by Maddy Yuossef MD) URI (upper respiratory infection) ?J06.9 - Acute upper respiratory infection, unspecified (ICD-10) Surgical History (Updated 09/04/25 @ 04:58 by Nirmal Zaragoza RN) No significant past surgical history Social History Smoking Status: Never smoker Do you use any of these nicotine containing products: None Second hand tobacco smoke exposure: No How often do you have a drink containing alcohol: never AUDIT-C Alcohol total score: 0 Non-prescribed substance use: denies use Exam Narrative: Exam Narrative: General: Afebrile, tearful but otherwise no distress. HEENT: Normocephalic, atraumatic, conjunctiva normal. MMM Neck: non-tender, supple Cardio: regular rate. regular rhythm Resp: Normal work of breathing, no respiratory distress, lungs clear bilaterally, no wheezing, rhonchi, rales Chest/Back: no visual signs of trauma, no midline tenderness, no CVA tenderness Abdomen: soft, non distension, no tenderness, no peritoneal signs Neuro: alert and fully oriented. CN II-XII grossly intact. Grossly normal strength and sensation in all extremities. MSK: no deformities. Normal range of motion Integumentary/Skin: no rash visualized, normal color Psych: normal affect, normal behavior Const: Vital Signs, click to edit/add: Vital Signs - 24 hr 09/04/25 04:00 Temperature 97.9 F Pulse Rate [Pulse Oximeter] 78 Respiratory Rate 16 Blood Pressure [Ri ght Upper Arm] 131/83 Pulse Oximetry 100 Oxygen Delivery Me thod Room Air Course Vital Signs Vital signs: Initial Vital Signs Temperature 97.9 F 09/04/25 04:00 Temperature Source Temporal Artery Scan 09/04/25 04:00 Pulse Rate 78 09/04/25 04:00 Respiratory Rate 16 09/04/25 04:00 Blood Pressure 131/83 09/04/25 04:00 Blood Pressure Mean 99 09/04/25 04:00 Blood Pressure Position Sitting 09/04/25 04:00 Pulse Oximetry 100 09/04/25 04:00 Oxygen Delivery Method Room Air 09/04/25 04:00 Vital Signs Temperature 97.9 F 09/04/25 04:00 Pulse Rate 78 09/04/25 04:00 Respiratory Rate 16 09/04/25 04:00 Blood Pressure 131/83 09/04/25 04:00 Pulse Oximetry 100 09/04/25 04:00 Oxygen Delivery Method Room Air 09/04/25 04:00 Temperature 97.9 F 09/04/25 04:00 Pulse Rate 78 09/04/25 04:00 Respiratory Rate 16 09/04/25 04:00 Blood Pressure 131/83 09/04/25 04:00 Pulse Oximetry 100 09/04/25 04:00 Oxygen Delivery Method Room Air 09/04/25 04:00 Medical Decision Making MDM Narrative Medical decision making narrative: Linh is a 45-year-old female who presents the emergency department for evaluation of nausea, vomiting in the setting of alcohol use. Upon arrival patient is intoxicated but otherwise nontoxic appearing, afebrile, no distress. Patient arrives with daughter, spouse, reports drinking too much alcohol tonight. Patient denies any other abdominal pain and does report feeling better upon arrival to the emergency department. Abdomen is soft, nontender, nondistended. I suspect patient's symptoms are most likely secondary to acute alcohol intoxication. Patient requesting for water upon arrival so was treated with ODT Zofran. Patient drinking without difficulty, denies any abdominal pain, no further episodes of vomiting. Patient resting comfortably. At this time with shared decision making between patient, daughter, cells, and myself, will hold off on further testing at this time. Patient and family feel comfortable discharge home supportive care, close outpatient follow-up, strict return precautions discussed. Discharge Plan Discharge Clinical Impression: Nausea & vomiting, Alcohol intoxication Patient Disposition: Home, Self-Care Condition: Stable Additional Instructions: Please follow-up with your primary care provider in the next 3-5 days for further evaluation and follow-up. Please call to schedule an appointment. Please rest, drink plenty of water. Return to the emergency department if high fever, severe abdominal pain, persistent vomiting, or any worsening symptoms. Prescriptions: No Action Vicks DayQuil Cough 5 mg/5 mL syrup 10 mg PO Q6H PRN ibuprofen [Advil] 200 mg tablet 200 mg PO Q6H PRN atorvastatin 20 mg tablet 20 mg PO DAILY amlodipine 5 mg tablet 5 mg PO DAILY Follow Up/Referrals: Provider,Not a Local [Primary Care Provider, Family Practice] Stand Alone Forms: [employer] Info Instructions
[2025-09-04 04:59] VITALS: BP 125/78; PULSE 70; RESP 16; TEMP 36.6; O2SAT 100
[2025-09-04 05:11] VITALS: BP 125/78; PULSE 70; RESP 16; TEMP 36.6
== END 2025-09-04 05:11 | disposition home or self-care (01) ==
PROVIDERS: Emergency Provider Emergency Medicine
DX: R11.2 Nausea with vomiting, unspecified (principal); F10.129 Alcohol abuse with intoxication, unspecified
CPT/HCPCS: 99283; 99284; A9270

== ENCOUNTER 2025-10-21 15:52 | Outpatient (CLI) | payer BC, SELFPAY | END 2025-10-21 15:53 | disposition home or self-care (01) | LOC: NFLDUCREF 15:53 | PROVIDERS: Visit Provider Physician Assistant Surgical | DX: L08.9 Local infection of the skin and subcutaneous tissue, unspecified (principal) | CPT/HCPCS: 87070 ==